=== PATIENT | female | born 1985 | race Caucasian/White ===

== ENCOUNTER 2019-06-25 13:57 | Emergency (ER) | payer OTHER, SELFPAY ==
[2019-06-25 14:39] VITALS: BP 133/86; PULSE 95; RESP 16; TEMP 37; O2SAT 98
--- NOTE | 2019-06-25 15:01 | ED.GENADULT ---
HPI - General Adult General Chief complaint: Unspecified Stated complaint: STD Testing Time Seen by Provider: 06/25/19 15:10 Source: patient and RN notes reviewed Mode of arrival: ambulatory Limitations: no limitations History of Present Illness HPI narrative: 33-year-old female presents concern for exposure to STD. Reports she had intercourse with a partner last week who recently informed her that he had abnormal penile discharge. She is unaware if he has been tested for any STDs. She reports 2 other sexual partners for which she does not use protection. He denies any symptoms. Denies abnormal vaginal discharge, abdominal pain, foul-smelling urine, foul-smelling vaginal discharge, abnormal vaginal bleeding, malaise, fever, dysuria, hematuria, frequency, urgency. MD complaint: STD exposure Related Data Home Medications Medication Instructions Recorded Confirmed amitriptyline 50 mg PO HS 06/25/19 06/25/19 lamotrigine 100 mg PO DAILY 06/25/19 06/25/19 topiramate 50 mg PO BID 06/25/19 06/25/19 venlafaxine 75 mg PO BID 06/25/19 06/25/19 Allergies Allergy/AdvReac Type Severity Reaction Status Date / Time Penicillins Allergy Intermediate THROAT Verified 06/25/19 15:01 LEBRON Review of Systems Review of Systems: Narrative: CONSTITUTIONAL: Denies malaise, chills, sweats, or fever. EYES: Denies visual changes, redness, or discharge. ENT: Denies rhinorrhea, congestion, sinus pain, otalgia or sore throat. CARDIOVASCULAR: Denies chest pain, palpitations, or edema. RESPIRATORY: Denies cough or dyspnea. GASTROINTESTINAL: Denies abdominal pain, nausea, vomiting, diarrhea GENITOURINARY: Denies dysuria or hematuria. SKIN: Denies rash or itching. MUSCULOSKELETAL: Denies back pain, joint pain, or myalgia. NEUROLOGIC: Denies numbness, weakness, or headache. All systems reviewed & are unremarkable except as noted in HPI and below PMFSH Comments At time of signature, agree with nursing past medical, surgical, social and family history. There is no relevant family history pertinent to the presenting complaint Exam Narrative: Exam Narrative: GENERAL: Well-appearing, well-nourished, and in no acute distress. HEAD: Normocephalic. EYES: PERRLA, conjunctivae clear. NECK: Supple. No lymphadenopathy CHEST: Clear to auscultation. No respiratory distress. HEART: Regular rate and rhythm. No murmur heard. Normal peripheral pulses. ABDOMEN: Soft, nontender upon palpation, nondistended, normal active bowel sounds, no palpable or pulsatile masses, no guarding. No CVA tenderness SKIN: Warm, dry, no rash. NEURO: Alert and oriented x3. PSYCH: Normal mood and affect Course Course Emergency Course: Patient is aware of diagnosis, understands and agrees to treatment plan. Anticipatory guidance given. Patient agrees to follow-up as directed and is aware of reasons to seek care at the emergency department. Portions of this record may have been created with voice recognition software Vital Signs Vital signs: Vital Signs Temperature 98.6 F 06/25/19 14:39 Pulse Rate 95 06/25/19 14:39 Respiratory Rate 16 06/25/19 14:39 Blood Pressure 133/86 06/25/19 14:39 Pulse Oximetry 98 06/25/19 14:39 Temperature 98.6 F 06/25/19 14:39 Pulse Rate 95 06/25/19 14:39 Respiratory Rate 16 06/25/19 14:39 Blood Pressure 133/86 06/25/19 14:39 Pulse Oximetry 98 06/25/19 14:39 Reviewed. 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 Gemifloxacin,, azithromycin, Flagyl reviewed and sent to the patient's pharmacy. Patient was instructed to orange picker antibiotics and take as directed and was given anticipatory guidance regarding using protected sex for 7 days and following up with health for further testing. Exam findings and UA show no acute concerns or changes; patient is non-toxic appearing and is in no distress.
--- NOTE | 2019-06-25 15:42 | PC.NURSE ---
NO UC ORDERED PER MILY
--- NOTE | 2019-06-25 15:57 | PC.NURSE ---
1553 ZITHROMAX CANCELLED BY THE PROVIDER AND MEDICATION NOT GIVEN. FREDDY GUILLEN
--- NOTE | 2019-06-29 21:27 | PC.NURSE ---
Previously today pt informed nurse she took azithromycin 06/25 as prescribed but could not take prescribed cefixime until today because pharmacy did not have it until today. Provider Urszula Rocha, informed of std test results, including detection of N gonorrhoeae. Provider informed pt did not take previously prescribed cefixime until today. Provider additionally prescribed azithromycin 1 gm once to be taken today. Pt informed and stated she would take prescribed azithromycin in addition to cefixime today. pt stated she will follow-up at std clinic.
== END 2019-06-25 15:35 | disposition home or self-care (01) ==
PROVIDERS: Emergency Provider Nurse Practitioner
DX: Z20.2 Contact with and (suspected) exposure to infections with a predominantly sexual mode of transmission (principal); F43.10 Post-traumatic stress disorder, unspecified; F32.9 Major depressive disorder, single episode, unspecified
CPT/HCPCS: 81003; 87491; 87591; 87661; 99213; G0463